=== PATIENT | male | born 1985 | race Caucasian/White ===

== ENCOUNTER 2023-03-15 22:09 | Emergency (ER) | payer OTHER ==
[~2023-03-15] VITALS: Ht 188 cm; Wt 114.8 kg
[2023-03-16] MEDS ORDERED: dexaMETHasone SOD PHOSPHATE 10 MG/ML VIAL MC ONE
[2023-03-16] MEDS ORDERED: CEFTRIAXONE 500 MG VIAL ONE
[2023-03-16] MEDS ORDERED: DOXYCYCLINE HYCLATE (100 MG) 100 MG TABLET PO ONE
[2023-03-16] MEDS ORDERED: CEFTRIAXONE 500 MG VIAL IM ONE
[2023-03-16] MEDS ORDERED: DOXYCYCLINE HYCLATE (100 MG) 100 MG TABLET ONE (00:01)
[2023-03-16] MEDS ORDERED: DOXY100C2 PO (01:02)
[2023-03-16] MEDS ORDERED: ACYC200C31 PO (01:02)
[2023-03-16 01:07] VITALS: BP 159/91; TEMP 97.8; O2SAT 98
[2023-03-16 16:26] LABS: HIV-1 p24 ANTIGEN NON REACTIVE (NONREACTIVE); HIV-1/2 ANTIBODY NON REACTIVE (NONREACTIVE)
[2023-03-17 06:09] LABS: RAPID PLASMA REAGIN QUAL. Non Reactive (Non Reactive)
[2023-03-18 08:10] LABS: CHLAMYDIA TRACHOMATIS NAA Positive (Negative); NEISSERIA GONORRHOEAE NAA Negative (Negative)
== END 2023-03-16 01:09 | disposition home or self-care (01) ==
LOC: ER 22:13
DX: Z20.2 Contact with and (suspected) exposure to infections with a predominantly sexual mode of transmission (principal); J02.9 Acute pharyngitis, unspecified; Z79.899 Other long term (current) drug therapy
CPT/HCPCS: 99283; 36415; 87880; 87806; 87491; 87591; 86592; 86593; 96372; J0696; 86403-TC